=== PATIENT | female | born 1960 | race African-American/Black ===

== ENCOUNTER 2020-10-31 09:18 | Inpatient (IN) | payer OTHER ==
[2020-10-31 09:27] VITALS: BMI 25.7
[2020-10-31] MEDS ORDERED: AZITHROMYCIN 250 MG TABLET PO ONE (09:49)
[2020-10-31] MEDS ORDERED: methylPREDNISolone NA SUCC 125 MG/2 ML VIAL IVPB ONE (09:49)
[2020-10-31] MEDS ORDERED: methylPREDNISolone NA SUCC 125 MG/2 ML VIAL ONE (10:09)
[2020-10-31] MEDS ORDERED: AZITHROMYCIN 250 MG TABLET ONE (10:09)
[2020-10-31] MEDS: ALBUTEROL SO4 2.5/IPRATROPIUM 0.5 INH SOL 3 ML VIAL.NEB. NEB SCH ×4 (10:21→11:30)
[2020-10-31 10:33] LABS: BASO % 0.5 % (0-2.0); EOS % 2.2 % (0-4.5); HEMATOCRIT 38.4 % (32.4-45.2); HEMOGLOBIN 13.1 GM/dL (10.7-15.3); LYMPH % 15.7 % (8-40); MCH 30.2 pg (25.7-33.7); MCHC 34.1 g/dl (32.0-36.0); MEAN CELL VOLUME 88.6 fl (80-96); MEAN PLT VOLUME 8.1 fl (7.5-11.1); MONO % 8.1 % (3.8-10.2); NEUT % 73.5 % (42.8-82.8); PLATELET COUNT 220 K/MM3 (134-434); RBC 4.33 M/mm3 (3.60-5.2); RDW 14.9 % (11.6-15.6); WHITE BLOOD COUNT 7.6 K/mm3 (4.0-10.0)
[2020-10-31 10:51] LABS: CALCIUM 9.3 mg/dL (8.5-10.1)
[2020-10-31 10:52] LABS: BLOOD UREA NITROGEN 17.5 mg/dL (7-18)
[2020-10-31 10:55] LABS: CREATININE 0.7 mg/dL (0.55-1.3)
[2020-10-31] MEDS ORDERED: ACETAMINOPHEN 325 MG TABLET (FP) PO ONE (11:06)
[2020-10-31] MEDS ORDERED: ACETAMINOPHEN 325 MG TABLET (FP) ONE ×2 (11:42→20:21)
[2020-10-31] MEDS ORDERED: ASPIRIN 81 MG CHEWABLE TABLETS PO ONE (11:43)
[2020-10-31] MEDS ORDERED: ASPIRIN 81 MG CHEWABLE TABLETS ONE (12:14)
[2020-10-31] MEDS ORDERED: LORATADINE 10 MG TABLET PO PRN (12:39)
[2020-10-31] MEDS ORDERED: amLODIPine BESYLATE 5 MG TABLET (FP) ONE (13:08)
[2020-10-31] MEDS: amLODIPine BESYLATE 10 MG TABLET (FP) PO SCH (14:00)
[2020-10-31] MEDS ORDERED: morphine CARPU-JECT 4 MG/1 ML DISP.SYRIN IVPUSH ONE (15:09)
[2020-10-31] MEDS ORDERED: guaiFENesin 600 MG TABLET.ER (FP) PO ONE (15:11)
[2020-10-31] MEDS ORDERED: MORPHINE SULFATE 2 MG/ML VIAL ONE (15:20)
[2020-10-31] MEDS: BUDESONIDE/FORMETEROL FUMARATE 160/4.5 mcg INHALER IH SCH ×2 (16:26→21:09)
[2020-10-31] MEDS ORDERED: ALBUTEROL SO4 HFA INHALER IH ONE (18:42)
[2020-10-31] MEDS: ALBUTEROL SO4 HFA INHALER IH PRN (18:44)
[2020-10-31] MEDS: ACETAMINOPHEN 325 MG TABLET (FP) PO PRN (20:23)
[2020-10-31] MEDS ORDERED: HEPARIN NA (PORCINE) 5,000 UNITS/ML 1ML VIAL ONE (21:43)
[2020-10-31] MEDS: HEPARIN NA (PORCINE) 5,000 UNITS/ML 1ML VIAL SQ SCH (22:15)
[2020-11-01] MEDS ORDERED: ACETAMINOPHEN 325 MG TABLET (FP) ONE ×2 (01:42→01:43)
[2020-11-01] MEDS: ACETAMINOPHEN 325 MG TABLET (FP) PO PRN (01:46)
[2020-11-01 06:31] VITALS: TEMP 98
[2020-11-01 08:04] LABS: CALCIUM 8.8 mg/dL (8.5-10.1)
[2020-11-01 08:05] LABS: ALBUMIN 3.3 g/dl (3.4-5.0); BLOOD UREA NITROGEN 12.3 mg/dL (7-18)
[2020-11-01 08:09] LABS: BILIRUBIN,TOTAL 0.5 mg/dL (0.2-1); CREATININE 0.7 mg/dL (0.55-1.3)
[2020-11-01] MEDS ORDERED: amLODIPine BESYLATE 5 MG TABLET (FP) ONE (09:10)
[2020-11-01] MEDS ORDERED: HEPARIN NA (PORCINE) 5,000 UNITS/ML 1ML VIAL ONE (09:10)
[2020-11-01] MEDS ORDERED: NALOXONE BUPRENORPHINE SL ONE (09:30)
[2020-11-01] MEDS ORDERED: NALOXONE SL ONE (09:30)
[2020-11-01] MEDS ORDERED: BUPRENORPHINE SL ONE (09:30)
[2020-11-01] MEDS: BUDESONIDE/FORMETEROL FUMARATE 160/4.5 mcg INHALER IH SCH (09:45)
[2020-11-01] MEDS: HEPARIN NA (PORCINE) 5,000 UNITS/ML 1ML VIAL SQ SCH (09:45)
[2020-11-01] MEDS: amLODIPine BESYLATE 10 MG TABLET (FP) PO SCH (09:45)
[2020-11-01] MEDS: ALBUTEROL SO4 HFA INHALER IH PRN (09:46)
[2020-11-01] MEDS ORDERED: BUPRENORPHINE/NALOXONE 12 MG-3 MG SL FILM PACKET SL SCH (10:00)
[2020-11-01 12:51] VITALS: BP 102/72; PULSE 73
== END 2020-11-01 12:25 | disposition home or self-care (01) | DRG 140 ==
LOC: JER 09:18 → JERBED 11:16
PROVIDERS: ADMIT Family Medicine; ATTEND Family Medicine
PROC: [UNRECOGNIZED PROCEDURE] (principal; 2020-10-31)
DX: J44.1 Chronic obstructive pulmonary disease with (acute) exacerbation (principal); I10 Essential (primary) hypertension; E11.9 Type 2 diabetes mellitus without complications; F17.210 Nicotine dependence, cigarettes, uncomplicated; R07.9 Chest pain, unspecified; I24.8 Other forms of acute ischemic heart disease; F11.20 Opioid dependence, uncomplicated
CPT/HCPCS: 36415; 71046-TC-FY; 80048; 80053; 84484; 85025; 87804; 93005; 93010; 99285-25; C9803; J1644; U0003; U0005

== ENCOUNTER 2022-02-02 08:29 | Inpatient (IN) | payer OTHER ==
[2022-02-02 09:37] VITALS: BMI 25.2
[2022-02-02] MEDS ORDERED: amLODIPine BESYLATE 5 MG TABLET (FP) ONE (11:11)
[2022-02-02] MEDS ORDERED: amLODIPine BESYLATE 10 MG TABLET (FP) PO ONE (11:22)
[2022-02-02] MEDS ORDERED: IBUPROFEN 600 MG TABLET (FP) PO PRN (12:06)
[2022-02-02] MEDS ORDERED: BISMUTH SUBSALICYLATE 262 MG/15 ML BTL PO PRN (12:06)
[2022-02-02] MEDS ORDERED: MAGNESIUM CITRATE 300 ML BOTTLE PO PRN (12:06)
[2022-02-02] MEDS ORDERED: LOPERAMIDE HCL 2 MG CAPSULE PO PRN (12:06)
[2022-02-02] MEDS ORDERED: IBUPROFEN 400 MG TABLET (FP) PO PRN (12:06)
[2022-02-02] MEDS ORDERED: BUPRENORPHINE HCL 150 MCG, BUPRENORPHINE HCL 75 MCG BC ONE (12:06)
[2022-02-02] MEDS ORDERED: BENZOCAINE/MENTHOL (CHLORASEPTIC ) LOZENGE MM PRN (12:06)
[2022-02-02] MEDS ORDERED: ONDANSETRON *ODT* 4 MG TABLET SL PRN (12:06)
[2022-02-02] MEDS ORDERED: BUPRENORPHINE HCL 150 MCG, BUPRENORPHINE HCL 75 MCG BC PRN (12:06)
[2022-02-02] MEDS ORDERED: cloNIDine HCL 0.1 MG TABLET PO ONE (12:06)
[2022-02-02] MEDS ORDERED: MAGNESIUM HYDROX 2400MG/30ML ORAL SUSPENSION 30 ML CUP PO PRN (12:06)
[2022-02-02] MEDS ORDERED: NALOXONE HCL (KLOXXADO) 8 MG SPRAY NS PRN (12:06)
[2022-02-02] MEDS ORDERED: DICYCLOMINE HCL 10 MG CAPSULE PO PRN (12:06)
[2022-02-02] MEDS ORDERED: ACETAMINOPHEN 325 MG TABLET (FP) PO PRN (12:06)
[2022-02-02] MEDS ORDERED: NICOTINE 10 MG CARTRIDGE (INHALER) IH PRN (12:06)
[2022-02-02] MEDS ORDERED: ALBUTEROL SO4 HFA INHALER IH PRN (13:01)
[2022-02-02] MEDS ORDERED: BUPRENORPHINE HCL 150 MCG FILM BC ONE (13:19)
[2022-02-02] MEDS ORDERED: BUPRENORPHINE HCL 75 MCG FILM BC ONE (13:19)
[2022-02-02] MEDS: PRENATAL VITAMINS W/ FOLIC ACID TABLET (FP) PO SCH (13:21)
[2022-02-02] MEDS: hydrOXYzine PAMOATE 25 MG CAPSULE (FP) PO SCH ×3 (13:21→22:37)
[2022-02-02] MEDS: ASPIRIN 81 MG CHEWABLE TABLETS PO SCH (15:22)
[2022-02-02] MEDS: IPRATROPIUM/ALBUTEROL (COMBIVENT) RESPIMAT 20-100 MCG IH SCH ×2 (15:22→22:37)
[2022-02-02] MEDS: metoPROLOL SUCCINATE 25 MG TAB.SR.24H (FP) PO SCH (15:22)
[2022-02-02] MEDS: THIAMINE HCL 100 MG TABLET (FP) PO SCH (22:37)
[2022-02-02] MEDS: cloNIDine HCL 0.1 MG TABLET PO PRN (22:37)
[2022-02-02] MEDS: MELATONIN 5 MG TABLETS PO SCH (22:37)
[2022-02-02] MEDS: METHOCARBAMOL 500 MG TABLET PO PRN (22:37)
[2022-02-02] MEDS: ATORVASTATIN CA 20 MG TABLET (FP) PO SCH (22:37)
[2022-02-03] MEDS ORDERED: BUPRENORPHINE HCL 150 MCG, BUPRENORPHINE HCL 75 MCG BC PRN
[2022-02-03] MEDS ORDERED: BUPRENORPHINE HCL 150 MCG FILM BC ONE ×2 (04:56→16:37)
[2022-02-03] MEDS ORDERED: BUPRENORPHINE HCL 75 MCG FILM BC ONE ×2 (04:56→16:38)
[2022-02-03] MEDS: BUPRENORPHINE HCL 150 MCG, BUPRENORPHINE HCL 75 MCG BC SCH ×2 (06:06→17:43)
[2022-02-03] MEDS: hydrOXYzine PAMOATE 25 MG CAPSULE (FP) PO SCH ×5 (06:06→21:41)
[2022-02-03] MEDS: cloNIDine HCL 0.1 MG TABLET PO PRN ×2 (06:08→20:09)
[2022-02-03] MEDS: diazePAM 5 MG TABLET PO PRN ×3 (06:56→18:37)
[2022-02-03] MEDS: IPRATROPIUM/ALBUTEROL (COMBIVENT) RESPIMAT 20-100 MCG IH SCH ×2 (10:13→22:39)
[2022-02-03] MEDS: amLODIPine BESYLATE 10 MG TABLET (FP) PO SCH (10:14)
[2022-02-03] MEDS: metoPROLOL SUCCINATE 25 MG TAB.SR.24H (FP) PO SCH (10:14)
[2022-02-03] MEDS: PRENATAL VITAMINS W/ FOLIC ACID TABLET (FP) PO SCH (10:14)
[2022-02-03] MEDS: ASPIRIN 81 MG CHEWABLE TABLETS PO SCH (10:14)
[2022-02-03] MEDS: MAG HYDROX/AL HYDROX/SIMETH 30 ML UNIT-DOSE CUP PO PRN ×2 (11:38→17:44)
[2022-02-03 12:54] LABS: HEMATOCRIT 40.1 % (32.4-45.2); HEMOGLOBIN 13.3 GM/dL (10.7-15.3); MCH 29.6 pg (25.7-33.7); MCHC 33.2 g/dl (32.0-36.0); MEAN CELL VOLUME 89.1 fl (80-96); MEAN PLT VOLUME 8.4 fl (7.5-11.1); PLATELET COUNT 215 10^3/uL (134-434); RDW 14.9 % (11.6-15.6); WHITE BLOOD COUNT 5.1 K/mm3 (4.0-10.0)
[2022-02-03 13:43] LABS: ALBUMIN 3.6 g/dl (3.4-5.0); CALCIUM 9.4 mg/dL (8.5-10.1)
[2022-02-03 13:46] LABS: CREATININE 0.7 mg/dL (0.55-1.3)
[2022-02-03 13:47] LABS: TOT PROT 7.3 g/dl (6.4-8.2)
[2022-02-03 13:48] LABS: BILIRUBIN,TOTAL 0.8 mg/dL (0.2-1)
[2022-02-03] MEDS: ACETAMINOPHEN 325 MG TABLET (FP) PO PRN (18:58)
[2022-02-03] MEDS: METHOCARBAMOL 500 MG TABLET PO PRN (20:09)
[2022-02-03] MEDS: MELATONIN 5 MG TABLETS PO SCH (21:40)
[2022-02-03] MEDS: THIAMINE HCL 100 MG TABLET (FP) PO SCH (21:41)
[2022-02-03] MEDS: ATORVASTATIN CA 20 MG TABLET (FP) PO SCH (21:41)
[2022-02-04] MEDS: BUPRENORPHINE HCL 450 MCG FILM BC SCH ×2 (05:24→17:39)
[2022-02-04] MEDS: hydrOXYzine PAMOATE 25 MG CAPSULE (FP) PO SCH ×5 (05:25→23:00)
[2022-02-04] MEDS: cloNIDine HCL 0.1 MG TABLET PO PRN (07:30)
[2022-02-04] MEDS: ACETAMINOPHEN 325 MG TABLET (FP) PO PRN ×3 (07:57→20:19)
[2022-02-04] MEDS: metoPROLOL SUCCINATE 25 MG TAB.SR.24H (FP) PO SCH (10:42)
[2022-02-04] MEDS: PRENATAL VITAMINS W/ FOLIC ACID TABLET (FP) PO SCH (10:43)
[2022-02-04] MEDS: METHOCARBAMOL 500 MG TABLET PO PRN (10:43)
[2022-02-04] MEDS: diazePAM 5 MG TABLET PO PRN (10:43)
[2022-02-04] MEDS: ASPIRIN 81 MG CHEWABLE TABLETS PO SCH (10:43)
[2022-02-04] MEDS: amLODIPine BESYLATE 10 MG TABLET (FP) PO SCH (10:43)
[2022-02-04] MEDS: IPRATROPIUM/ALBUTEROL (COMBIVENT) RESPIMAT 20-100 MCG IH SCH ×2 (10:44→23:00)
[2022-02-04] MEDS: THIAMINE HCL 100 MG TABLET (FP) PO SCH (23:00)
[2022-02-04] MEDS: ATORVASTATIN CA 20 MG TABLET (FP) PO SCH (23:00)
[2022-02-04] MEDS: MELATONIN 5 MG TABLETS PO SCH (23:00)
[2022-02-05] MEDS: METHOCARBAMOL 500 MG TABLET PO PRN (03:19)
[2022-02-05] MEDS: ACETAMINOPHEN 325 MG TABLET (FP) PO PRN (03:20)
[2022-02-05] MEDS: hydrOXYzine PAMOATE 25 MG CAPSULE (FP) PO SCH (05:45)
[2022-02-05] MEDS ORDERED: BUPRENORPHINE/NALOXONE 4 MG/1 MG FILM PACKET SL SCH (06:00)
[2022-02-05] MEDS: cloNIDine HCL 0.1 MG TABLET PO PRN (06:31)
[2022-02-05 09:48] VITALS: BP 155/107; PULSE 80; TEMP 98.1
[2022-02-05] MEDS: ASPIRIN 81 MG CHEWABLE TABLETS PO SCH (11:03)
[2022-02-05] MEDS: metoPROLOL SUCCINATE 25 MG TAB.SR.24H (FP) PO SCH (11:03)
[2022-02-05] MEDS: amLODIPine BESYLATE 10 MG TABLET (FP) PO SCH (11:03)
[2022-02-05] MEDS: PRENATAL VITAMINS W/ FOLIC ACID TABLET (FP) PO SCH (11:04)
[2022-02-06] MEDS ORDERED: BUPRENORPHINE/NALOXONE 8 MG/2 MG FILM PACKET SL ONE (06:00)
== END 2022-02-05 12:12 | disposition left against medical advice (07) | DRG 770 ==
LOC: YASAS 08:29 → Y6N 11:02
PROVIDERS: ADMIT Allergy & Immunology; ATTEND Surgery
PROC: HZ2ZZZZ Detoxification Services for Substance Abuse Treatment (ICD-10-PCS; principal; 2022-02-02)
DX: F11.23 Opioid dependence with withdrawal (principal); F17.210 Nicotine dependence, cigarettes, uncomplicated; F19.280 Other psychoactive substance dependence with psychoactive substance-induced anxiety disorder; F41.9 Anxiety disorder, unspecified; I25.10 Atherosclerotic heart disease of native coronary artery without angina pectoris; I10 Essential (primary) hypertension; E78.5 Hyperlipidemia, unspecified; J44.9 Chronic obstructive pulmonary disease, unspecified; R73.9 Hyperglycemia, unspecified; I69.854 Hemiplegia and hemiparesis following other cerebrovascular disease affecting left non-dominant side; Z98.61 Coronary angioplasty status; Z99.89 Dependence on other enabling machines and devices; Z88.8 Allergy status to other drugs, medicaments and biological substances
CPT/HCPCS: 36415; 80053; 82962; 85027; 86780; 93005; 93010; C9803-CS; J0735; J3535; Q0162; U0003; U0005